=== PATIENT | female | born 1975 | race Caucasian/White ===

== ENCOUNTER 2016-03-24 14:20 | Emergency (ER) | payer OTHER ==
[~2016-03-24] VITALS: Ht 157.5 cm; Wt 73.9 kg
[~2016-03-24 14:20] MED LIST: ALLDSR60 PO; CLX20 PO; FLX10 PO; LRT5 PO; PRED20TA PO
[2016-03-24 14:24] VITALS: TEMP 36.7; Ht 157.5 cm; Wt 73.9 kg
[2016-03-24] MEDS ORDERED: MoRPHine SULFATE 10 MG/ML CARP/VIAL IV STA (14:32)
[2016-03-24] MEDS ORDERED: SODIUM CHLORIDE 0.9% 1000ML 1,000 ML IV STA ×2 (14:32→15:55)
[2016-03-24] MEDS ORDERED: ONDANSETRON INJ 2 MG/ML 2 ML VIAL IV STA (14:32)
[2016-03-24 15:10] LABS: BASO % 0.1 %; BASO ABS # 0.01 K/uL (0-0.2); COMPLETE YES; EOS % 0.5 %; HEMATOCRIT 42.7 % (37-47); IG% 0.2 %; LYMPH % 4.3 %; LYMPH ABS # 0.58 K/uL (1.2-3.4); MEAN CELL VOLUME 91.4 fL (80-100); MEAN CORPUSCULAR HEMOGLOBIN 30.4 pg (25-34); MEAN CORPUSCULAR HGB CONC 33.3 g/dl (32-36); MEAN PLATELET VOLUME 9.2 fL (7.4-10.4); NEUT % 91.9 %; PLATELET COUNT 241 K/uL (130-400); RED BLOOD COUNT 4.67 M/uL (4.2-5.4); WHITE BLOOD COUNT 13.52 K/uL (4.8-10.8)
--- NOTE | 2016-03-24 15:29 | DIAGNOSTIC IMAGING REPORT ---
CT HEAD WITHOUT CONTRAST (CT) CLINICAL HISTORY: HEAD PAIN. HEAD TRAUMA. SYNCOPE. COMPARISON STUDY: 12/26/2014 TECHNIQUE: Axial CT of the brain is performed from the vertex to the skull base. IV contrast was not administered for this examination. CT DOSE: FINDINGS: No intra or extra-axial mass lesions are visualized. There is no CT evidence of acute cortical infarction. There is no evidence of midline shift. There is no acute hemorrhage. No calvarial fractures are visualized. There is no evidence of pathologic ventricular dilatation. There is no evidence of acute sinusitis IMPRESSION: No acute intracranial findings Electronically signed by: Nathan Strong M.D. 03/24/2016 3:27 PM Dictated Date/Time: 03/24/2016 3:26 PM
[2016-03-24 15:30] LABS: ALT/SGPT 10 U/L (12-78); BLOOD UREA NITROGEN 15 mg/dl (7-18); BUN/CREATININE RATIO 20.3 (10-20); CALCIUM 8.6 mg/dl (8.5-10.1); CARBON DIOXIDE 25 mmol/L (21-32); CHLORIDE 111 mmol/L (98-107); CREATININE 0.72 mg/dl (0.60-1.20); GLUCOSE 101 mg/dl (70-99); POTASSIUM 3.8 mmol/L (3.5-5.1); SODIUM 146 mmol/L (136-145)
--- NOTE | 2016-03-24 15:31 | DIAGNOSTIC IMAGING REPORT ---
CT OF THE CERVICAL SPINE CLINICAL HISTORY: Neck pain status post trauma COMPARISON STUDY: No previous studies for comparison. CT DOSE: 998.67 mGy.cm TECHNIQUE: CT scan of the cervical spine was performed from the skull base to the thoracic inlet. Images are reviewed in the axial, sagittal, and coronal planes. IV contrast was not administered for this examination. FINDINGS: The visualized portions of the lung apices reveal no evidence of pneumothorax. The prevertebral soft tissues are normal. No fractures or subluxations are visualized. There is straightening of the normal cervical lordosis. There are degenerative changes most pronounced the C5-6 and C6-7 levels. There is mild spinal stenosis the C6-7 level. IMPRESSION: No evidence of acute fracture or traumatic subluxation. Electronically signed by: Nathan Strong M.D. 03/24/2016 3:29 PM Dictated Date/Time: 03/24/2016 3:27 PM
[2016-03-24 15:34] LABS: ALKALINE PHOSPHATASE 69 U/L (45-117); AST/SGOT 6 U/L (15-37)
[2016-03-24] MEDS ORDERED: SERT50TA PO (15:40)
[2016-03-24] MEDS ORDERED: CYAN100048 INJ (15:40)
[2016-03-24] MEDS ORDERED: CYAN500T PO (15:40)
[2016-03-24] MEDS ORDERED: ROLAIDS PO (15:40)
[2016-03-24] MEDS ORDERED: OPTIRAY 320 IV PRN (16:00)
--- NOTE | 2016-03-24 16:45 | DIAGNOSTIC IMAGING REPORT ---
CT ANGIOGRAM OF THE CHEST CLINICAL HISTORY: Atypical chest pain. Possible pulmonary embolism. COMPARISON STUDY: No previous studies for comparison. TECHNIQUE: Following the IV administration of 75 mL of Optiray-320, CT angiogram of the thorax was performed from the thoracic inlet to the lung bases utilizing the pulmonary embolus protocol. Images are reviewed in the axial, sagittal, and coronal planes. IV contrast was administered without complication. MIP imaging was performed. CT DOSE: 691.41 mGy.cm FINDINGS: No pathologically enlarged axillary mediastinal or hilar lymph nodes were visualized. There was no evidence of thoracic aortic dilatation. There were no pulmonary artery filling defects to indicate acute pulmonary embolism. No pleural effusions are visualized. There is right middle lobe linear scar/atelectatic change. Dependent groundglass opacities are likely atelectatic. There is no focal pulmonary consolidation IMPRESSION: 1. No acute intrathoracic findings 2. No CT evidence of acute pulmonary or wasn't 3. No evidence of focal pulmonary consolidation Electronically signed by: Nathan Strong M.D. 03/24/2016 4:43 PM Dictated Date/Time: 03/24/2016 4:39 PM
[2016-03-24] MEDS ORDERED: ONDA4TAB10 SL (18:39)
--- NOTE | 2016-03-24 18:39 | EMERGENCY ROOM VISIT NOTE ---
History Report prepared by Darinel: Anthony Tsang Under the Supervision of: Dr. Jose Roberto Martinez M.D. First contact with patient: 14:27 Chief Complaint: VOMITING Stated Complaint: V,D, DIZZY, PASSED OUT History of Present Illness The patient is a 40 year old female who presents to the Emergency Room with complaints of persistent vomiting since 0500 this morning. The patient also started to experience nausea and diarrhea this morning. The patient passed out while she was on the toilet. As per her , she was unconscious for about a minute. The patient does not think she hit her head. The patient has had sinus congestion for the past two weeks. The patient denies any blood in her stools or swelling of the lower extremities. The patient has neck pain and leg pain, which are common for her secondary to a history of fibromyalgia. She does not take any daily medications. The patient does not have a history of blood clots. She traveled to [place] one month ago. Source of History: patient Onset: 0500 this morning Position: other (GI) Quality: other (vomiting) Timing: other (persistent) Associated Symptoms: + LOC, + diarrhea, + nausea, No hematochezia Review of Systems See HPI for pertinent positives & negatives. A total of 10 systems reviewed and were otherwise negative. Past Medical & Surgical Medical Problems: (1) Fibromyalgia Family History Patient reports no known family medical history. Social History Smoking Status: Former Smoker Housing Status: lives with family Current/Historical Medications Scheduled Cyanocobalamin (Vitamin B-12), 1 TAB PO DAILY Cyanocobalamin (Vitamin B-12), 1,000 MCG INJ MONTHLY Ondasetron Odt (Zofran Odt), 4 MG SL Q6H Sertraline (Zoloft), 75 MG PO DAILY Scheduled PRN [Rolaids], 2 TABS PO for Dyspepsia Allergies Coded Allergies: No Known Allergies (Unverified , 03/24/16) Physical Exam Vital Signs Date Time Temp Pulse Resp B/P Pulse Ox O2 Delivery O2 Flow Rate FiO2 03/24/16 18:53 84 20 101/63 98 03/24/16 17:49 90 18 102/56 97 Room Air 03/24/16 16:08 76 20 108/63 98 Room Air 03/24/16 14:24 36.7 103 18 125/89 98 Room Air Physical Exam GENERAL: Patient is dehydrated appearing in mild distress. HEENT: No acute trauma, normocephalic atraumatic, mucous membranes are dry, no nasal congestion, no scleral icterus. NECK: No stridor, no adenopathy, no meningismus, trachea is midline. LUNGS: No dyspnea. Clear to auscultation and equal bilaterally. No wheeze, no rhonchi. HEART: Tachycardic, regular rhythm. No murmurs, rubs, gallops appreciated. ABDOMEN: Soft, nontender, bowel sounds are hyperactive, no masses appreciated, no peritonitis. BACK: No midline tenderness, no CVA tenderness EXTREMITIES: Normal motion all extremities, no cyanosis, no edema. NEUROLOGIC: Alert and oriented, no acute motor or sensory deficits, no focal weakness, cranial nerves grossly intact. SKIN: No rash, no jaundice, no diaphoresis. Medical Decision & Procedures ER Provider Diagnostic Interpretation: CT results as stated below per interpretation by me and the radiologist: CT OF THE CERVICAL SPINE CLINICAL HISTORY: Neck pain status post trauma COMPARISON STUDY: No previous studies for comparison. CT DOSE: 998.67 mGy. TECHNIQUE: CT scan of the cervical spine was performed from the skull base to the thoracic inlet. Images are reviewed in the axial, sagittal, and coronal planes. IV contrast was not administered for this examination. FINDINGS: The visualized portions of the lung apices reveal no evidence of pneumothorax. The prevertebral soft tissues are normal. No fractures or subluxations are visualized. There is straightening of the normal cervical lordosis. There are degenerative changes most pronounced the C5-6 and C6-7 levels. There is mild spinal stenosis the C6-7 level. IMPRESSION: No evidence of acute fracture or traumatic subluxation. Electronically signed by: Nathan Strong M.D. 03/24/2016 3:29 PM Dictated Date/Time: 03/24/2016 3:[address] HEAD WITHOUT CONTRAST (CT) CLINICAL HISTORY: HEAD PAIN. HEAD TRAUMA. SYNCOPE. COMPARISON STUDY: 12/26/2014 TECHNIQUE: Axial CT of the brain is performed from the vertex to the skull base. IV contrast was not administered for this examination. CT DOSE: FINDINGS: No intra or extra-axial mass lesions are visualized. There is no CT evidence of acute cortical infarction. There is no evidence of midline shift. There is no acute hemorrhage. No calvarial fractures are visualized. There is no evidence of pathologic ventricular dilatation. There is no evidence of acute sinusitis IMPRESSION: No acute intracranial findings Electronically signed by: Nathan Strong M.D. 03/24/2016 3:27 PM Dictated Date/Time: 03/24/2016 3:[address] ANGIOGRAM OF THE CHEST CLINICAL HISTORY: Atypical chest pain. Possible pulmonary embolism. COMPARISON STUDY: No previous studies for comparison. TECHNIQUE: Following the IV administration of 75 mL of Optiray-320, CT angiogram of the thorax was performed from the thoracic inlet to the lung bases utilizing the pulmonary embolus protocol. Images are reviewed in the axial, sagittal, and coronal planes. IV contrast was administered without complication. MIP imaging was performed. CT DOSE: 691.41 mGy.cm FINDINGS: No pathologically enlarged axillary mediastinal or hilar lymph nodes were visualized. There was no evidence of thoracic aortic dilatation. There were no pulmonary artery filling defects to indicate acute pulmonary embolism. No pleural effusions are visualized. There is right middle lobe linear scar/atelectatic change. Dependent groundglass opacities are likely atelectatic. There is no focal pulmonary consolidation IMPRESSION: 1. No acute intrathoracic findings 2. No CT evidence of acute pulmonary or wasn't 3. No evidence of focal pulmonary consolidation Electronically signed by: Nathan tSrong M.D. 03/24/2016 4:43 PM Dictated Date/Time: 03/24/2016 4:39 PM Laboratory Results 03/24/16 15:00 Red Blood Count 4.67, Mean Corpuscular Volume 91.4, Mean Corpuscular Hemoglobin 30.4, Mean Corpuscular Hemoglobin Concent 33.3, Mean Platelet Volume 9.2, Neutrophils (%) (Auto) 91.9, Lymphocytes (%) (Auto) 4.3, Monocytes (%) (Auto) 3.0, Eosinophils (%) (Auto) 0.5, Basophils (%) (Auto) 0.1, Neutrophils # (Auto) 12.43, Lymphocytes # (Auto) 0.58, Monocytes # (Auto) 0.40, Eosinophils # (Auto) 0.07, Basophils # (Auto) 0.01 03/24/16 15:00 Test 03/24/16 15:00 03/24/16 17:40 White Blood Count 13.52 K/uL (4.8-10.8) Red Blood Count 4.67 M/uL (4.2-5.4) Hemoglobin 14.2 g/dL (12.0-16.0) Hematocrit 42.7 % (37-47) Mean Corpuscular Volume 91.4 fL (80-100) Mean Corpuscular Hemoglobin 30.4 pg (25-34) Mean Corpuscular Hemoglobin Concent 33.3 g/dl (32-36) Platelet Count 241 K/uL (130-400) Mean Platelet Volume 9.2 fL (7.4-10.4) Neutrophils (%) (Auto) 91.9 % Lymphocytes (%) (Auto) 4.3 % Monocytes (%) (Auto) 3.0 % Eosinophils (%) (Auto) 0.5 % Basophils (%) (Auto) 0.1 % Neutrophils # (Auto) 12.43 K/uL (1.4-6.5) Lymphocytes # (Auto) 0.58 K/uL (1.2-3.4) Monocytes # (Auto) 0.40 K/uL (0.11-0.59) Eosinophils # (Auto) 0.07 K/uL (0-0.5) Basophils # (Auto) 0.01 K/uL (0-0.2) RDW Standard Deviation 43.2 fL (36.4-46.3) RDW Coefficient of Variation 12.9 % (11.5-14.5) Immature Granulocyte % (Auto) 0.2 % Immature Granulocyte # (Auto) 0.03 K/uL (0.00-0.02) D-Dimer 860 ug/L FEU (0-500) Anion Gap 10.0 mmol/L (3-11) Est Creatinine Clear Calc Drug Dose 96.8 ml/min Estimated GFR () 120.6 Estimated GFR (Non- 104.0 BUN/Creatinine Ratio 20.3 (10-20) Calcium Level 8.6 mg/dl (8.5-10.1) Total Bilirubin 0.4 mg/dl (0.2-1) Direct Bilirubin 0.1 mg/dl (0-0.2) Aspartate Amino Transf (AST/SGOT) 6 U/L (15-37) Alanine Aminotransferase (ALT/SGPT) 10 U/L (12-78) Alkaline Phosphatase 69 U/L (45-117) Troponin I < 0.015 ng/ml (0-0.045) Total Protein 7.3 gm/dl (6.4-8.2) Albumin 4.1 gm/dl (3.4-5.0) Lipase 99 U/L (73-393) Bedside Troponin I 0.000 ng/ml (0-0.045) Laboratory results as reviewed by me. Medications Administered Medications (Trade) Dose Ordered Sig/Rob Route Start Time Stop Time Status Last Admin Dose Admin Morphine Sulfate (MoRPHine SULFATE INJ) 6 mg NOW STAT IV 03/24/16 14:32 03/24/16 14:34 DC 03/24/16 15:08 6 MG Ondansetron HCl 4 mg 4 mg NOW STAT IV 03/24/16 14:32 03/24/16 14:35 DC 03/24/16 15:08 4 MG Sodium Chloride 1,000 ml @ 999 mls/hr Q1H1M STAT IV 03/24/16 14:32 03/24/16 15:32 DC 03/24/16 15:08 999 MLS/HR Sodium Chloride (Nss 1000ml) 1,000 ml @ 999 mls/hr Q1H1M STAT IV 03/24/16 15:55 03/24/16 16:55 DC 03/24/16 15:55 999 MLS/HR Ondansetron HCl (ZOFRAN ODT 4MG Home Pack) 1 homepack UD ONCE PO 03/24/16 18:45 03/24/16 18:46 DC 03/24/16 18:45 1 HOMEPACK Oxycodone HCl (Roxicodone Immediate Rel 5MG Home Pack) 1 homepack UD ONCE PO 03/24/16 18:45 03/24/16 18:46 DC 03/24/16 18:45 1 HOMEPACK ECG Indication: vomiting Rate (beats per minute): 83 Rhythm: normal sinus Findings: no acute ischemic change, no ectopy ED Course 1427: The patient was evaluated in room C11b. A complete history and physical exam was performed. 1432: NSS 1000 ml @ 999 mls/hr, Zofran 4 mg IV, Morphine Sulfate 6 mg IV. 1554: The patient is feeling better. She is currently drinking soda. I talked about the pros and cons of a CT chest to role out PE. She agreed. 1730: The patient is feeling great. After getting a POC troponin she can go home. 1839: Reassessed the patient. Discussed the findings and treatment plan with them. She verbalized understanding and agreement. The patient is ready for discharge. 1844: Oxycodone IR 5 mg PO homepack, Zofran Odt 4 mg PO homepack. Medical Decision Differential: Vaso-vagal, Intracerebral Event, Neurologic, Infectious, Volume Deficiency, Hypoglycemia, Electrolyte Abnormality, Cardiac Source, Toxicologic, amongst other pathologies entertained. 40 yr old female with syncopal event while sitting on toilet after having nausea /vomiting/diarrhea all day. Much improved with fluids and pain/nausea meds. CT head done for syncope, neck for pain post injury, and after dimer elevated went ahead with CT PE. Fortunately these were negative other than arthritic changes (which was explained to patient). She has normal trop x 2 with normal EKG thus I feel no evidence of this being ACS. Labs look good. Feeling much improved thus with nontender abdomen I do not feel further imaging abdomen necessary. She likely had vagal event in setting of dehydration leading to syncope. I feel she is safe for discharge. She is not septic and is comfortable without further symptoms. Will send home with limited number oxy IR along with zofran for if any further symptoms. There is well known norovirus currently in area which I suspect she has. Impression Primary Impression: Nausea, vomiting, and diarrhea Additional Impression: Syncope and collapse Scribe Attestation The scribe's documentation has been prepared under my direction and personally reviewed by me in its entirety. I confirm that the note above accurately reflects all work, treatment, procedures, and medical decision making performed by me. Departure Information Dispostion Home / Self-Care Prescriptions Ondasetron Odt (ZOFRAN ODT) 4 Mg Tab 4 MG SL Q6H for Nausea, #20 TAB Prov: Jose Roberto Martinez M.D. 03/24/16 Referrals RV. Szymanski MD (PCP) Forms HOME CARE DOCUMENTATION FORM, IMPORTANT VISIT INFORMATION Patient Instructions ED Syncope Vasovagal, My [facility] Health Problem Qualifiers
[2016-03-24] MEDS ORDERED: ONDANSETRON HOME PACK 4MG OD TAB PO ONE (18:45)
[2016-03-24] MEDS ORDERED: OXYCODONE IR HOME PACK PO ONE (18:45)
[2016-03-24 18:53] VITALS: BP 101/63; PULSE 84; O2SAT 98
== END 2016-03-24 18:55 | disposition home or self-care (01) ==
LOC: C.EDB 14:21 → C.EDC 18:55
DX: R11.2 Nausea with vomiting, unspecified (principal); R19.7 Diarrhea, unspecified; R55 Syncope and collapse; M79.7 Fibromyalgia; Z87.891 Personal history of nicotine dependence

== ENCOUNTER → 2016-06-04 | Outpatient (CLI) | payer OTHER ==
[~2016-06-04] MED LIST changes: -ALLDSR60 PO; -CLX20 PO; +CYAN100048 INJ; +CYAN500T PO; -FLX10 PO; -LRT5 PO; +ONDA4TAB10 SL; -PRED20TA PO; +ROLAIDS PO; +SERT50TA PO
--- NOTE | 2016-06-04 15:43 | MAMMOGRAPHY REPORT ---
UNILATERAL RIGHT DIGITAL DIAGNOSTIC MAMMOGRAM TOMOSYNTHESIS WITH CAD AND TARGETED RIGHT ULTRASOUND: 06/04/2016 CLINICAL HISTORY: 40-year-old woman presents for follow-up of a probable complicated cyst measuring 12.6 mm in the 11:00 right breast. TECHNIQUE: Right breast tomosynthesis in addition to standard 2D mammography was performed. Current study was also evaluated with a Computer Aided Detection (CAD) system. COMPARISON: Comparison is made to exams dated: 12/05/2015 ultrasound and 11/23/2015 mammogram - [facility]. BREAST COMPOSITION: There are scattered areas of fibroglandular density in the right breast. FINDINGS: The lobulated circumscribed oval mass in the upper outer approximate 10:00 right breast i s no longer seen mammographically on the 2-D or tomosynthesis images. No new suspicious mass, archi tectural distortion or cluster of microcalcifications is seen throughout the right breast. Repeat targeted ultrasound was performed in the area of previously identified complicated cysts in t he 11:00 right breast, 2 cm from the nipple. A mass is no longer identified in this location, conco rdant with the mammographic findings. Overall, no suspicious solid or cystic mass is currently seen . IMPRESSION: ACR BI-RADS CATEGORY 2: BENIGN, TARGETED ULTRASOUND ACR BI-RADS CATEGORY 2: BENIGN Resolution of the probable complicated cyst both mammographically and on ultrasound, confirming dajuan gnity. There is no mammographic or targeted sonographic evidence of malignancy. Return to annual ma mmogram screening schedule is recommended (due November 2016). The patient has been verbally notif ied of the results. Approximately 10% of breast cancers are not detected with mammography. A negative mammographic repor t should not delay biopsy if a clinically suggestive mass is present. Bárbara Bonner M.D. ay/:06/04/2016 14:16:39 Manager Beauty: Velvet CALZADA(Aftab)([place]), [facility] letter sent: Normal 1/2 BI-RADS Code: ACR BI-RADS Category 2: Benign Ultrasound BI-RADS: ACR BI-RADS Category 2: Benign
== END | disposition home or self-care (01) ==
LOC: C.MAMM 13:40
PROVIDERS: ATTEND Internal Medicine
DX: R92.8 Other abnormal and inconclusive findings on diagnostic imaging of breast (principal)

== ENCOUNTER → 2017-06-03 | Outpatient (CLI) | payer OTHER ==
[~2017-06-03] MED LIST changes: -ONDA4TAB10 SL
--- NOTE | 2017-06-04 07:58 | MAMMOGRAPHY REPORT ---
BILATERAL DIGITAL SCREENING MAMMOGRAM TOMOSYNTHESIS WITH CAD: 06/03/2017 CLINICAL HISTORY: Routine screening. Patient has no complaints. TECHNIQUE: Breast tomosynthesis in addition to standard 2D mammography was performed. Current study was also evaluated with a Computer Aided Detection (CAD) system. COMPARISON: Comparison is made to exams dated: 06/04/2016 ultrasound, 06/04/2016 mammogram, 12/05/2015 ul trasound, and 11/23/2015 mammogram - [facility]. BREAST COMPOSITION: There are scattered areas of fibroglandular density in both breasts. FINDINGS: The parenchymal pattern is unchanged. No developing mass, architectural distortion or clus ter of suspicious microcalcifications is seen in either breast. IMPRESSION: ACR BI-RADS CATEGORY 2: BENIGN There is no mammographic evidence of malignancy. A 1 year screening mammogram is recommended. The pa tient will receive written notification of the results. Approximately 10% of breast cancers are not detected with mammography. A negative mammographic report should not delay biopsy if a clinically suggestive mass is present. Bárbara Bonner M.D. ay/:06/03/2017 15:20:14 Sign Painter Helper: Genet Kang, [facility] letter sent: Normal 1/2 BI-RADS Code: ACR BI-RADS Category 2: Benign
== END | disposition home or self-care (01) ==
LOC: C.MAMM 14:48
PROVIDERS: ATTEND Internal Medicine
DX: Z12.31 Encounter for screening mammogram for malignant neoplasm of breast (principal)